=== PATIENT | female | born 1970 | race Caucasian/White ===

== ENCOUNTER → 2020-12-17 09:24 | Outpatient (BNVA) | payer BC, SELFPAY | PROVIDERS: Visit Provider Family Medicine | DX: I10 Essential (primary) hypertension (principal); Z13.1 Encounter for screening for diabetes mellitus; Z13.220 Encounter for screening for lipoid disorders; Z13.6 Encounter for screening for cardiovascular disorders; M77.8 Other enthesopathies, not elsewhere classified; Z12.39 Encounter for other screening for malignant neoplasm of breast | CPT/HCPCS: 80053; 80061 ==

== ENCOUNTER 2024-04-29 05:48 | Observation (INO) | payer BC, SELFPAY ==
[2024-04-29] VITALS (16 sets, daily range): BP systolic 110–134; BP diastolic 66–95; PULSE 75–132; RESP 10–23; TEMP 36.6–36.9; O2SAT 92–98; BMI 27.4; BMI 27.8
--- NOTE | 2024-04-29 06:09 | ECG_ITS ---
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
--- NOTE | 2024-04-29 06:16 | XRR_ITS ---
PROCEDURE INFORMATION: Exam: XR Chest Exam date and time: 04/29/2024 6:17 AM Age: 53 years old Clinical indication: C/O palpitations. History of afib. ; Additional info: Dyspnea TECHNIQUE: Imaging protocol: Radiologic exam of the chest. Views: 1 view. COMPARISON: No relevant prior studies available. FINDINGS: Lungs: Unremarkable. No consolidation. Pleural spaces: Unremarkable. No pleural effusion. No pneumothorax. Heart/Mediastinum: Unremarkable. No cardiomegaly. Bones/joints: Unremarkable. XR/XR chest 1V portable [id number] IMPRESSION: No acute findings.
--- NOTE | 2024-04-29 06:17 | ED_ITS ---
HPI - Arrhythmia/Palpitations 2 General: Chief Complaint: Arrhythmia/Palpitations Stated Complaint: High HR Time Seen by Provider: 04/29/24 06:08 History of Present Illness: 63-year-old female presents emergency ro om with a known history of atrial fibrillation. She woke up this morning with rapid heart rate. She usually takes metoprolol 50 mg twice a day. No recent changes in her medication she did take her morning dose of atrial fibrillation after she woke up. She denies any shortness of breath or orthopnea no lower extremity edema. No chest pain. Patient is not on any anticoagulation. Related Data Home Medications ?Medication ?Instructions ?Recorded ?Confirmed cetirizine 10 mg capsule (Zyrtec) 10 mg PO DAILY 12/1704/29/24 cholecalciferol (vitamin D3) 25 25 mcg PO QPM 04/29/24 04/29/24 mcg (1,000 unit) tablet (Vitamin D3) lactobacillus combination no.4 3 3,000 mmu cells PO QP M 04/29/24 04/29/24 billion cell capsule (Probiotic) lysine 500 mg tablet (L-Lysine) 500 mg PO QPM 04/29/24 04/29/24 magnesium glycinate 100 mg (as 100 mg PO QPM 04/29/24 04/29/24 glycinate) tablet Previous Rx's ?Medication ?Instructions ?Recorded metoprolol tartrate 50 mg tablet 50 mg PO BID 30 days #60 tabs 12/17/20 Allergies Allergy/AdvReac Type Severity Reaction Status Date / Time codeine Allergy unk Verified 04/13/21 09:10 Narcotics Allergy ill Uncoded 04/13/21 09:10 Review of Systems 2 Const: Denies: fever(s) or chills Card: Reports: palpitations and irregular heart rhythm; Denies: chest pain Resp: Denies: dyspnea GI: Denies: abdominal pain : Denies: dysuria, urinary frequency or urinary urgency Musc: Denies: neck pain or back pain Skin/Breast: Denies: rash PFSH ED 2 PFSH: Medical History Family history of alpha 1 antitrypsin deficiency Hypertension Afib Social History Smoking and tobacco/nicotine status: current every day tobacco/nicotine user cigarettes Packs smoked per day: 0.5 Years cigarettes smoked: 30 Alcohol intake: never Substance/Drug Use: never Female Reproductive History: Date of last menstrual period: 04/13/24 S pontaneous abortions: No Physical Exam 2 Const: COMMON NORMALS: no acute distress GENERAL APPEARANCE: cooperative and comfortable ORIENTATION/CONSCIOUSNESS: Yes awake, Yes oriented to person, Yes oriented to place and Yes oriented to time HENMT: COMMON NORMALS: normocephalic, atraumatic and hearing grossly normal bilaterally HEAD & SCALP: normocephalic and atraumatic Resp: COMMON NORMALS: normal respiratory effort, No retractions, No use of accessory muscles and clear to auscultation bilaterally AUSCULTATION: clear to auscultation bilaterally Cardio: COMMON NORMALS: No murmurs present (Cardio) RATE: tachycardic R HYTHM: abnormal rhythm irregularly irregular GI: COMMON NORMALS: Soft to palpation and No hepatosplenomegaly present A USCULTATION: Yes normoactive bowel sounds PALPATION: Yes Soft to palpation, No Tenderness to palpation present (GI), No Guarding due to palpation present (GI) and Yes No hepatosplenomegaly present Extremity: COMMON NORMALS: normal to inspection, capillary refill normal, no clubbing, cyanosis or edema, no calf tenderness and no pedal edema Neuro: SENSORIUM/ORIENTATION: Yes oriented to person, Yes oriented to place and Yes oriented to time Skin: COMMON NORMALS: no rashes or lesions noted GENERAL SKIN EXAM: no rashes or lesions noted Course 2 Vital Signs: Vital signs: Vital Signs Pulse Rate 91 04/29/24 09:13 Blood Pressure 134/81 04/29/24 09:13 Pulse Oximetry 97 04/29/24 09:13 Oxygen Delivery Me thod Room Air 04/29/24 06:46 MDM - Arrhythmia/Palpitations Medical Decision Making History of A-fib presents in A-fib with RVR rate improved with Cardizem but titrated up to 7.5 to maintain rate. Will place on observation for medication adjustment to her reevaluate therapy for A-fib and maintain rate control Medical Records I reviewed the patient's medical records. Lab Data I reviewed the patient's lab results. 04/29/24 06:40 04/29/24 06:40 Radiology Impressions Chest X-Ray 04/29/24 06:16 IMPRESSION: No acute findings. Laboratory Results WBC 6.48 10^3/uL (3.29-11.43) 04/29/24 06:40 RBC 5.15 10^6/uL (3.85-5.65) 04/29/24 06:40 Hgb 16.30 g/dL (11.27-16.99) 04/29/24 06:40 Hct 47.1 % (36-47) H 04/29/24 06:40 MCV 91.5 fl (85-98) 04/29/24 06:40 MCH 31.7 pg (27-33) 04/29/24 06:40 MCHC 34.6 g/dL (30-55) 04/29/24 06:40 RDW 11.3 % (12.1-15.1) L 04/29/24 06:40 Plt Count 206 10^3/cmm (157-399) 04/29/24 06:40 MPV 9.8 fL (7.4-10.4) 04/29/24 06:40 Neut % (Auto) 72.6 % 04/29/24 06:40 Lymph % (Auto) 19.1 % 04/29/24 06:40 [place] % (Auto) 6.6 % 04/29/24 06:40 Eos % (Auto) 1.1 % 04/29/24 06:40 Baso % (Auto) 0.3 % 04/29/24 06:40 Neut # (Auto) 4.70 10^3/uL (1.8-7.7) 04/29/24 06:40 Lymph # (Auto) 1.2 10^3/uL (0.8-4.8) 04/29/24 06:40 [place] # (Auto) 0.4 10^3/uL (0.2-0.9) 04/29/24 06:40 Eos # (Auto) 0.1 10^3/uL (0.0-0.8) 04/29/24 06:40 Baso # (Auto) 0.0 10^3/uL (0.0-0.1) 04/29/24 06:40 Nucleated RBC % (auto) 0 % 04/29/24 06:40 Nucleated RBCs # 0.0 /100WBC 04/29/24 06:40 Sodium 140 mmol/L (136-145) 04/29/24 06:40 Potassium 3.9 mmol/L (3.5-5.1) 04/29/24 06:40 Chloride 108 mmol/L (98-107) H 04/29/24 06:40 Carbon Dioxide 22 mmol/L (22-29) 04/29/24 06:40 Anion Gap 13.9 (5-19) 04/29/24 06:40 BUN 15 mg/dL (6-20) 04/29/24 06:40 Creatinine 0.7 mg/dL (0.5-0.9) 04/29/24 06:40 GFR Calculation 88.2 mL/min (90-130) L 04/29/24 06:40 Glucose 129 mg/dL (65-115) H 04/29/24 06:40 Calculated Osmolality 293 mOsm/kg (285-295) 04/29/24 06:40 Calcium 9.1 mg/dL (8.5-10.5) 04/29/24 06:40 Total Bilirubin 0.4 mg/dL (0.15-1.2) 04/29/24 06:40 AST 14 U/L (0-32) 04/29/24 06:40 ALT 16 U/L (0-33) 04/29/24 06:40 Alkaline Phosphatase 88 U/L (35-105) 04/29/24 06:40 Total Protein 6.8 g/dL (6.6-8.7) 04/29/24 06:40 Albumin 4.4 g/dL (3.5-5.2) 04/29/24 06:40 Globulin 2.4 g/dL (1.3-4.6) 04/29/24 06:40 TSH 1.44 uIU/mL (0.27-4.20) 04/29/24 06:40 Urine Color Yellow (Yellow) 04/29/24 06:30 Urine Appearance Clear (CLEAR) 04/29/24 06:30 Urine pH 6.0 (5-7) 04/29/24 06:30 Ur Specific [place] 1.000 (1.005-1.030) L 04/29/24 06:30 Urine Protein Negative (Negative) 04/29/24 06:30 Urine Glucose (UA) Negative (Normal) 04/29/24 06:30 Urine Ketones Negative (Negative) 04/29/24 06:30 Urine Blood Negative (Negative) 04/29/24 06:30 Urine Nitrate Negative (Negative) 04/29/24 06:30 Urine Bilirubin Negative (Negative) 04/29/24 06:30 Urine Urobilinogen 0.2 mg/dL (Negative) 04/29/24 06:30 Ur Leukocyte Esterase Negative (Negative) 04/29/24 06:30 Amorphous Sediment Not Reportable 04/29/24 06:30 All radiology interpretation(s) finalized by discharge Discharge Plan Discharge Patient Disposition: Admitted As Inpatient Admit Provider: Deng Deutsch Clinical Impression: Paroxysmal atrial fibrillation with RVR, Hypertension Condition: Stable Coding Level of Care Code ED 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
[2024-04-29 06:48] LABS: Add Urine Microscopic? NO
[2024-04-29 06:50] LABS: Basophils % 0.3 %; Eosinophils # 0.1 10^3/uL (0.0-0.8); Eosinophils % 1.1 %; Hematocrit 47.1 % (36-47); Lymphocytes # 1.2 10^3/uL (0.8-4.8); Lymphocytes % 19.1 %; Mean Corpuscular HGB Conc 34.6 g/dL (30-55); Mean Corpuscular Hemoglobin 31.7 pg (27-33); Mean Corpuscular Volume 91.5 fl (85-98); Mean Platelet Volume 9.8 fL (7.4-10.4); Monocytes # 0.4 10^3/uL (0.2-0.9); Monocytes % 6.6 %; Neutrophils % 72.6 %; Nucleated Red Blood Cells % 0 %; Platelet Count 206 10^3/cmm (157-399); Red Blood Count 5.15 10^6/uL (3.85-5.65); Red Cell Distribution Width 11.3 % (12.1-15.1); White Blood Count 6.48 10^3/uL (3.29-11.43)
[2024-04-29 06:52] LABS: Bilirubin Urine Negative (Negative); Blood Urine Negative (Negative); Glucose Urine UA Negative (Normal); Ketones Urine Negative (Negative); Leukocyte Esterase Urine Negative (Negative); Nitrate Urine Negative (Negative); Protein Urine Negative (Negative); Urine Appearance Clear (CLEAR); Urine Color Yellow (Yellow); Urobilinogen Urine 0.2 mg/dL (Negative)
[2024-04-29] MEDS: dilTIAZem 5 mg/mL SDV 5 mL 20 MG IVP (06:57)
[2024-04-29 07:03] LABS: Charge for UA Resulting for Rev
[2024-04-29] MEDS: dilTIAZem 100 MG in sodium chloride 0.9% (add-van) 100 ML IV (07:03)
[2024-04-29 07:23] LABS: Alanine Aminotransferase 16 U/L (0-33); Albumin Level 4.4 g/dL (3.5-5.2); Alkaline Phosphatase 88 U/L (35-105); Anion Gap 13.9 (5-19); Aspartate Amino Transferase 14 U/L (0-32); Blood Urea Nitrogen 15 mg/dL (6-20); Calcium 9.1 mg/dL (8.5-10.5); Carbon Dioxide 22 mmol/L (22-29); Chloride 108 mmol/L (98-107); Creatinine Clr Calc Pharmacy 96.2694; Globulin 2.4 g/dL (1.3-4.6); Glomerular Filtration Rate 88.2 mL/min (90-130); Glucose 129 mg/dL (65-115); Osmolality Calculated 293 mOsm/kg (285-295); Potassium 3.9 mmol/L (3.5-5.1); Sodium 140 mmol/L (136-145); Thyroid Stimulating Hormone 1.44 uIU/mL (0.27-4.20); Total Bilirubin 0.4 mg/dL (0.15-1.2); Total Protein 6.8 g/dL (6.6-8.7)
--- NOTE | 2024-04-29 09:38 | P.HP_ITS ---
Providers/Chief Complaint 2 Admitting Physician: Deng Deutsch Chief Complaint: High HR History of Present Illness Isabel Simmons is a 53 year old female Review of Systems 2 Const: Denies: fever(s), chills, body aches or malaise ENMT: Denies: throat pain Card: Reports: other (chest burning with tachycardia); Denies: edema, pre-syncope or dyspnea on exertion Resp: Denies: dyspnea, productive cough, change in phlegm color or hemoptysis GI: Denies: abdominal pain, nausea, vomiting, diarrhea, constipation, hematochezia or melena : Denies: flank pain, urinary frequency or hematuria Musc: Denies: back pain, joint swelling or joint redness Skin/Breast: Denies: rash or new lesions Neuro: Denies: headache(s) or confusion Medications/Allergies Home Medications ?Medication ?Instructions ?Recorded ?Confirmed ?Last Taken ?Type cetirizine 10 mg capsule (Zyrtec) 10 mg PO DAILY 12/1704/29/24 04/28/24 History metoprolol tartrate 50 mg tablet 50 mg PO BID 30 days #60 tabs 12/17/20 04/29/24 04/29/24 Rx cholecalciferol (vitamin D3) 25 25 mcg PO QPM 04/29/24 04/29/24 04/28/24 History mcg (1,000 unit) tablet (Vitamin D3) lactobacillus combination no.4 3 3,000 mmu cells PO QP M 04/29/24 04/29/24 04/28/24 History billion cell capsule (Probiotic) lysine 500 mg tablet (L-Lysine) 500 mg PO QPM 04/29/24 04/29/24 04/28/24 History magnesium glycinate 100 mg (as 100 mg PO QPM 04/29/24 04/29/24 04/28/24 History glycinate) tablet Allergies Allergy/AdvReac Type Severity Reaction Status Date / Time codeine Allergy unk Verified 04/13/21 09:10 Narcotics Allergy ill Uncoded 04/13/21 09:10 PFSH Acute 2 PFSH: Medical History Family history of alpha 1 antitrypsin deficiency Hypertension Afib Social History Smoking and tobacco/nicotine status: current every day tobacco/nicotine user cigarettes Packs smoked per day: 0.5 Years cigarettes smoked: 30 Alcohol intake: never Substance/Drug Use: never Female Reproductive History: Date of last menstrual period: 04/13/24 S pontaneous abortions: No Vitals/I&O/Wt Last Vital Signs Pulse 91 04/29/24 09:13 BP 134/81 04/29/24 09:13 Pulse Ox 97 04/29/24 09:13 O2 Del Method Room Air 04/29/24 06:46 04/28/24 04/29/24 04/29/24 22:59 06:59 14:59 Intake Total 2.833 / 2.833 Balance 2.833 / 2.833 Weight last 48 hrs Weight 78.381 kg Weight 74.843 kg Physical Exam 2 Narrative: at bedside Const: COMMON NORMALS: patient oriented x3 and alert GENERAL APPEARANCE: c ooperative ORIENTATION/CONSCIOUSNESS: Yes awake Neck/C-Spine: COMMON NORMALS: no JVD Resp: COMMON NORMALS: normal respiratory effort and clear to auscultation bilaterally AUSCULTATION: clear to auscultation bilaterally Cardio: COMMON NORMALS: no JVD, regular rhythm, S1 normal heart sound present, S2 normal heart sound present and No murmurs present (Cardio) RHYTHM: a bnormal rhythm irregularly irregular HEART SOUNDS: S1 normal heart sound present and S2 normal heart sound present GI: COMMON NORMALS: Normal to inspection, nondistended, normoactive bowel sounds present, Soft to palpation and non-tender PALPATION: Yes Soft to palpation Extremity: COMMON NORMALS: no joint enlargement and no pedal edema Neuro: COMMON NORMALS: patient oriented x3 and moves all extremities S ENSORIUM/ORIENTATION: Yes alert Data 04/29/24 06:40 04/29/24 06:40 A&P Assessment and plan (1) Paroxysmal atrial fibrillation with RVR: HR up to 130s, AFib w RVR, during peak tachycardia reports was having burning sensation. Says she has not missed any of her metoprolol. Started on cardizem drip in ER. So far responding to treatment with improving tachycardia, maintaining blood pressure, but monitor for risk of hypotension with medication combination with metoprolol. Monitor blood pressures, monitor on telemetry. Continue metoprolol. Check magnesium, added TSH. Reviewed vitals, CBC, CMP, UA, ER provider note, discussed with ER provider. Reviewed EKG, noted some TWI in V2. Symptomatic with chest burning with tachycardia will obtain troponin EKG series. She denies any fever chills, recently illness, has not missed medications. With heart rate being a bit better controlled we will assess TTE for any valvular heart disease, other structural abnormality. Additionally discussed stroke risk, discussed recommendation of anticoagulation with recommendation for stroke risk prophylaxis versus risk of bleeding. For now she prefers to start aspirin. Follow-up with primary provider. Plan HTN: monitor blood pressures, continue metoprolol Smoking: she had quit smoking several years ago PDMP PDMP Reviewed: Not Reviewed Attestations 2 Medical Necessity Statement*: Place in observation for additional assessment management of paroxysmal atrial fibrillation with RVR. and High MDM includes amount and/or complexity of data reviewed/ordered [ previous or external records, resulted lab(s)/test(s), ordered lab(s)/test(s), independent test interpretation and other healthcare professional discussion] and described risk of complication, morbidity or mortality of management as documented Diagnoses Paroxysmal atrial fibrillation with RVR I48.0
--- NOTE | 2024-04-29 09:56 | USCV_ITS ---
Isabel Simmons Age: 53 Gender: F : 1970 Exam Date: 04/29/2024 10:27 Ordering Phys: Deng Deutsch MD Technologist: Exam Location: [facility] [place] Indication: chest pain abnormal heart rythm BP: 121 / 70 HR: 71 Rhythm: Sinus Technical Quality: Adequate MEASUREMENTS (Male / Female) Normal Values 2D ECHO LV Diastolic Diameter PLAX 3.7 cm 4.2 - 5.9 / 3.9 - 5.3 cm IVS Diastolic Thickness 1.1 cm 0.6 - 1.0 / 0.6 - 0.9 cm IVS Systolic Thickness 1.7 cm LVPW Diastolic Thickness 1.3 cm 0.6 - 1.0 / 0.6 - 0.9 cm LVPW Systolic Thickness 1.4 cm LVOT Diameter 1.9 cm LV Ejection Fraction 2D Teich 62.4 % LV Ejection Fraction MOD 4C 68.9 % LV Ejection Fraction MOD 2C 67.2 % LV Ejection Fraction 2C AL 67.8 % LA Diameter 3.0 cm RA Systolic Volume 4C AL 23.9 ml RA Systolic Volume 4C MOD 24.2 ml Aorta at Sinotubular Diameter 2.1 cm IVC Diameter 1.7 cm M-MODE LA Ao Ratio MM 1.4 AV Cusp Separation MM 2.1 cm DOPPLER AV Peak Velocity 95.0 cm/s LVOT Peak Velocity 98.0 cm/s AV Area Cont Eq vti 3.0 cm squared AV Area Cont Eq pk 2.8 cm squared MV Peak Velocity 104.0 cm/s MV Area PHT 4.3 cm squared Mitral E to A Ratio 3.5 TV Peak Velocity 178.0 cm/s TR Peak Velocity 194.0 cm/s TR Peak Gradient 15.1 mmHg TV Peak E Velocity 88.0 cm/s PV Peak Velocity 104.0 cm/s FINDINGS Left Ventricle Normal left ventricular size, systolic function and wall thickness, with no regional wall motion abnormalities. Left ventricular ejection fraction is estimated at 60 %. Normal diastolic function. Right Ventricle The right ventricle is normal in size and function. Right Atrium The right atrium is normal in size. Left Atrium The left atrium is normal in size. Mitral Valve Mildly thickened mitral valve. No mitral valve stenosis. Mild mitral valve regurgitation. Aortic Valve Structurally normal aortic valve without significant sclerosis or stenosis. There is no aortic regurgitation. Tricuspid Valve Structurally normal tricuspid valve without significant stenosis or regurgitation. Pulmonary artery systolic pressure is normal. Pulmonic Valve Structurally normal pulmonic valve without significant stenosis. There is no pulmonic regurgitation. Pericardium Normal pericardium without effusion. Aorta Normal ascending aorta dimension. IVC The inferior vena cava appears normal. CONCLUSIONS Normal left ventricular size, systolic function and wall thickness, with no regional wall motion abnormalities. Left ventricular ejection fraction is estimated at 60 %. Normal diastolic function. Mildly thickened mitral valve. No mitral valve stenosis. Mild mitral valve regurgitation. There is no pericardial effusion. Right atrial pressure is around 5 mm of mercury. Dede Albright MD (Electronically Signed) Final Date: 29 April 2024 21:20 S
[2024-04-29 10:13] LABS: Magnesium 2.1 mg/dL (1.7-2.3)
[2024-04-29] MEDS: aspirin 81 mg EC Tablet 162 MG PO (10:45)
[2024-04-29] MEDS: enoxaparin 40 mg/0.4 mL Syringe SUBCUT (10:45)
[2024-04-29 11:04] LABS: Troponin(5th) Baseline 18 ng/L (0-10)
[2024-04-29 12:54] LABS: Troponin 5 2HR 17.02 ng/L (0-10)
[2024-04-29 12:56] LABS: Troponin 5 2HR Delta -0.98 ABS# (0-10)
--- NOTE | 2024-04-29 14:14 | ECG_ITS ---
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
--- NOTE | 2024-04-29 15:56 | ECG_ITS ---
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
[2024-04-29] MEDS: ondansetron 2 mg/ML SDV 2 mL 4 MG IVP (16:32)
[2024-04-29] MEDS: dilTIAZem 100 MG in sodium chloride 0.9% (add-van) 100 ML 12.5 MG IV (17:35)
[2024-04-29] MEDS: magnesium oxide 400 mg tablet 200 MG PO (18:29)
[2024-04-29] MEDS: metoprolol tartrate 50 mg Tablet PO (18:29)
[2024-04-29] MEDS: acetaminophen 325 mg Tablet 650 MG PO (19:17)
--- NOTE | 2024-04-29 23:06 | ECG_ITS ---
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
--- NOTE | 2024-04-29 23:51 | PC.NURSE ---
Pt converted at 2300 on bedside monitor, EKG taken to confirm, EKG confirmed Sinus Bhanu
[2024-04-30] VITALS: BP 103/60; PULSE 53; RESP 18; O2SAT 96
[2024-04-30 03:30] LABS: Basophils % 0.5 %; Eosinophils # 0.1 10^3/uL (0.0-0.8); Hematocrit 48.3 % (36-47); Lymphocytes % 24.4 %; Mean Corpuscular HGB Conc 34.6 g/dL (30-55); Mean Corpuscular Hemoglobin 32.1 pg (27-33); Mean Corpuscular Volume 92.7 fl (85-98); Mean Platelet Volume 10.1 fL (7.4-10.4); Monocytes # 0.5 10^3/uL (0.2-0.9); Monocytes % 5.9 %; Neutrophils # 5.55 10^3/uL (1.8-7.7); Neutrophils % 67.8 %; Nucleated Red Blood Cells % 0 %; Platelet Count 229 10^3/cmm (157-399); Red Blood Count 5.21 10^6/uL (3.85-5.65); Red Cell Distribution Width 11.5 % (12.1-15.1); White Blood Count 8.18 10^3/uL (3.29-11.43)
[2024-04-30 03:46] LABS: Anion Gap 14.8 (5-19); Blood Urea Nitrogen 13 mg/dL (6-20); Calcium 9.4 mg/dL (8.5-10.5); Carbon Dioxide 23 mmol/L (22-29); Chloride 107 mmol/L (98-107); Glomerular Filtration Rate 88.2 mL/min (90-130); Glucose 131 mg/dL (65-115); Osmolality Calculated 292 mOsm/kg (285-295); Potassium 4.8 mmol/L (3.5-5.1); Sodium 140 mmol/L (136-145)
[2024-04-30 03:51] VITALS: BP 114/66; PULSE 56; RESP 17; TEMP 36.8; O2SAT 94
[2024-04-30 05:23] VITALS: PULSE 82
[2024-04-30 08:00] VITALS: BP 133/70; PULSE 52; RESP 18; TEMP 36.7; O2SAT 97
[2024-04-30] MEDS: aspirin 81 mg EC Tablet 162 MG PO (08:45)
[2024-04-30] MEDS: acetaminophen 325 mg Tablet 650 MG PO (08:45)
[2024-04-30] MEDS: metoprolol tartrate 50 mg Tablet 75 MG PO (08:46)
[2024-04-30] MEDS: enoxaparin 40 mg/0.4 mL Syringe SUBCUT (08:47)
--- NOTE | 2024-04-30 09:08 | PM.DCS ---
Discharge Providers Date of Admission: 04/29/24 08:45 Date of Discharge: April 30, 2024 Attending Provider at Admission: Deng Deutsch Attending Provider at Discharge: Deng Deutsch Diagnoses at Discharge Discharge Diagnosis (1) Paroxysmal atrial fibrillation with RVR: Status: Acute Reason for Visit Reason for Visit: High HR Brief History: Pleasant 53-year-old lady with history of atrial fibrillation, hypertension presented to ER due to elevated irregular heart rate, with finding of atrial fibrillation with RVR. She had not missed any doses of her metoprolol that she normally takes at 50 mg twice daily. She is not on anticoagulation. On assessment she was not found to have any signs of congestive heart failure decompensation. No chest pain or pressure. She denies any recent other acute illness. Hospital Course Hospital Course She was hospitalized and treated with Cardizem infusion, continued on her metoprolol, with gradual improvement in heart rates down into the 50s-60s. Metoprolol was increased up to 75 mg. She is weaned off Cardizem. Troponin elevation noted to be mild, flat, and she remained free of any chest discomfort. Echocardiogram was assessed, she is found to have normal ejection fraction, normal diastolic function, mildly thickened mitral valve, no mitral stenosis, mild MVR. No RWMA. TSH was checked and was normal. Electrolytes normal. She has not had any recent illness. Without obvious trigger, she has not missed any of her metoprolol doses. Please follow-up assessment for possible sleep apnea. She has not been on anticoagulation, with [id number] score of 2, discussed with her recommendation would be for anticoagulation for stroke risk reduction, she is concerned to start anticoagulation at this time would like to first discuss it with her primary provider. In the meantime she is agreeable to start on aspirin. Understands that aspirin provides only partial stroke risk reduction effect compared to full anticoagulation. Physical Exam Narrative: Accompanied by her . Const: COMMON NORMALS: patient oriented x3 and alert GENERAL APPEARANCE: cooperative ORIENTATION/CONSCIOUSNESS: Yes awake HENMT: COMMON NORMALS: oropharynx normal Neck/C-Spine: COMMON NORMALS: no JVD Resp: COMMON NORMALS: normal respiratory effort and clear to auscultation bilaterally AUSCULTATION: clear to auscultation bilaterally Cardio: COMMON NORMALS: no JVD, regular rhythm, S1 normal heart sound present, S2 normal heart sound present and No murmurs present (Cardio) RHYTHM: regular rhythm HEART SOUNDS: S1 normal heart sound present and S2 normal heart sound present GI: COMMON NORMALS: Normal to inspection, nondistended, normoactive bowel sounds present, Soft to palpation and non-tender PALPATION: Yes Soft to palpation Extremity: COMMON NORMALS: no joint enlargement and no pedal edema Neuro: COMMON NORMALS: patient oriented x3 and moves all extremities SENSORIUM/ORIENTATION: Yes alert Skin: COMMON NORMALS: no rashes or lesions noted GENERAL SKIN EXAM: no rashes or lesions noted Discharge Data Studies Completed and Pending Completed Studies During Hospitalization Category Date Time Status XR chest 1V portable [id number] Stat Exams 04/29/24 06:16 Completed CV. echo complete* [id number] Routine Ultrasound 04/29/24 09:56 Completed Pending at discharge Category Date Time Status Basic Metabolic Panel AM LABS Lab 05/01/24 04:00 Ordered Basic Metabolic Panel AM LABS Lab 05/02/24 04:00 Ordered Complete Blood Count w/Auto AM LABS Lab 05/01/24 04:00 Ordered Complete Blood Count w/Auto AM LABS Lab 05/02/24 04:00 Ordered Radiology Impressions Chest X-Ray 04/29/24 06:16 IMPRESSION: No acute findings. Laboratory Results WBC 8.18 10^3/uL (3.29-11.43) 04/30/24 02:57 RBC 5.21 10^6/uL (3.85-5.65) 04/30/24 02:57 Hgb 16.70 g/dL (11.27-16.99) 04/30/24 02:57 Hct 48.3 % (36-47) H 04/30/24 02:57 MCV 92.7 fl (85-98) 04/30/24 02:57 MCH 32.1 pg (27-33) 04/30/24 02:57 MCHC 34.6 g/dL (30-55) 04/30/24 02:57 RDW 11.5 % (12.1-15.1) L 04/30/24 02:57 Plt Count 229 10^3/cmm (157-399) 04/30/24 02:57 MPV 10.1 fL (7.4-10.4) 04/30/24 02:57 Neut % (Auto) 67.8 % 04/30/24 02:57 Lymph % (Auto) 24.4 % 04/30/24 02:57 Cooper % (Auto) 5.9 % 04/30/24 02:57 Eos % (Auto) 1.0 % 04/30/24 02:57 Baso % (Auto) 0.5 % 04/30/24 02:57 Neut # (Auto) 5.55 10^3/uL (1.8-7.7) 04/30/24 02:57 Lymph # (Auto) 2.0 10^3/uL (0.8-4.8) 04/30/24 02:57 Cooper # (Auto) 0.5 10^3/uL (0.2-0.9) 04/30/24 02:57 Eos # (Auto) 0.1 10^3/uL (0.0-0.8) 04/30/24 02:57 Baso # (Auto) 0.0 10^3/uL (0.0-0.1) 04/30/24 02:57 Nucleated RBC % (auto) 0 % 04/30/24 02:57 Nucleated RBCs # 0.0 /100WBC 04/30/24 02:57 Sodium 140 mmol/L (136-145) 04/30/24 02:57 Potassium 4.8 mmol/L (3.5-5.1) 04/30/24 02:57 Chloride 107 mmol/L (98-107) 04/30/24 02:57 Carbon Dioxide 23 mmol/L (22-29) 04/30/24 02:57 Anion Gap 14.8 (5-19) 04/30/24 02:57 BUN 13 mg/dL (6-20) 04/30/24 02:57 Creatinine 0.7 mg/dL (0.5-0.9) 04/30/24 02:57 GFR Calculation 88.2 mL/min (90-130) L 04/30/24 02:57 Glucose 131 mg/dL (65-115) H 04/30/24 02:57 Calculated Osmolality 292 mOsm/kg (285-295) 04/30/24 02:57 Calcium 9.4 mg/dL (8.5-10.5) 04/30/24 02:57 Magnesium 2.1 mg/dL (1.7-2.3) 04/29/24 06:40 Total Bilirubin 0.4 mg/dL (0.15-1.2) 04/29/24 06:40 AST 14 U/L (0-32) 04/29/24 06:40 ALT 16 U/L (0-33) 04/29/24 06:40 Alkaline Phosphatase 88 U/L (35-105) 04/29/24 06:40 Troponin T Baseline 18 ng/L (0-10) H 04/29/24 10:21 Troponin T 120 Minute 17.02 ng/L (0-10) H 04/29/24 12:23 Delta Troponin T -0.98 ABS# (0-10) L 04/29/24 12:23 Troponin T Hi Sens 6Hr 15.60 ng/L (0-10) H 04/29/24 16:21 Troponin T Hi Sens 6Hr Delta -2.40 ng/L (0-12) L 04/29/24 16:21 Total Protein 6.8 g/dL (6.6-8.7) 04/29/24 06:40 Albumin 4.4 g/dL (3.5-5.2) 04/29/24 06:40 Globulin 2.4 g/dL (1.3-4.6) 04/29/24 06:40 TSH 1.44 uIU/mL (0.27-4.20) 04/29/24 06:40 Urine Color Yellow (Yellow) 04/29/24 06:30 Urine Appearance Clear (CLEAR) 04/29/24 06:30 Urine pH 6.0 (5-7) 04/29/24 06:30 Ur Specific Hugo 1.000 (1.005-1.030) L 04/29/24 06:30 Urine Protein Negative (Negative) 04/29/24 06:30 Urine Glucose (UA) Negative (Normal) 04/29/24 06:30 Urine Ketones Negative (Negative) 04/29/24 06:30 Urine Blood Negative (Negative) 04/29/24 06:30 Urine Nitrate Negative (Negative) 04/29/24 06:30 Urine Bilirubin Negative (Negative) 04/29/24 06:30 Urine Urobilinogen 0.2 mg/dL (Negative) 04/29/24 06:30 Ur Leukocyte Esterase Negative (Negative) 04/29/24 06:30 Amorphous Sediment Not Reportable 04/29/24 06:30 Vitals Last Vital Signs Temp 98.1 F 04/30/24 08:00 Pulse 52 L 04/30/24 08:00 Resp 18 04/30/24 08:00 BP 133/70 04/30/24 08:00 Pulse Ox 97 04/30/24 08:00 O2 Del Method Room Air 04/30/24 08:00 Discharge Plan Discharge Patient Disposition: Home Condition: Stable Prescriptions: New aspirin 325 mg tablet 162.5 mg PO DAILY Qty: 90 0RF Continued Zyrtec 10 mg capsule 10 mg PO DAILY lysine [L-Lysine] 500 mg Tablet 500 mg PO QPM cholecalciferol (vitamin D3) [Vitamin D3] 25 mcg (1,000 unit) Tablet 25 mcg PO QPM magnesium glycinate 100 mg Tablet 100 mg PO QPM Probiotic 3 billion cell Capsule 3,000 mmu cells PO QPM Rx Instructions: administer with a meal Changed metoprolol tartrate 50 mg tablet 75 mg PO BID 30 Days Qty: 60 5RF Discharge Orders: Discharge Order (Routine); Ordered 04/30/24 Ordered By: Deng Deutsch Other Ambulatory Orders: Sleep Study/Titration (Routine) Timeframe: 1 Week Facility: [facility] - Location: [facility] Ordered By: Deng Deutsch Referrals: Francine Daniel [employer] [Nurse Practitioner] - 2 weeks (Recurrent AFib w RVR) David Pruitt [Referring] - 05/06/24 2:00 pm Discharge Diet: Cardiac Patient Instructions: Metoprolol (By mouth), A-fib (Atrial Fibrillation) (GEN) Activity Restrictions/Additional Instructions: Please follow-up with your primary provider as well as with cardiology for reassessment of recurrent episodes of atrial fibrillation, atrial fibrillation with rapid ventricular response despite not missing any metoprolol. Follow-up regarding sleep study to assess for any sleep apnea. Sleep apnea can be a trigger for atrial fibrillation. Follow-up with your primary doctor regarding results. Discuss further with your primary provider and cardiology regarding atrial fibrillation including stroke risk reduction. Revisit again regarding anticoagulation consideration. Continue aspirin in the meantime. Monitor for any bleeding as aspirin does increase the risk bleeding somewhat. Aspirin may also lead to irritation of her stomach, gastritis and/or peptic ulcer disease. Please speak further with your primary care provider. Monitor heart rates, blood pressures at home 3 times daily. Avoid heart rates dipping down below 50. In case heart rate is trending to low 50s or below, hold metoprolol dose. Decrease subsequent doses back to 50 mg. Seek medical attention in case of any worsening or new concerning symptoms. Discharge Attestations Time Spent in Discharge Care*: greater than 30 min Quality Metrics Clinical Quality Measures [ No reported AMI, CVA or VTE this stay] Coding Level of Care Code 28013 Total time (in minutes) for Discharge: 40 Diagnoses Paroxysmal atrial fibrillation with RVR I48.0
--- NOTE | 2024-04-30 09:46 | PC.CHAP ---
Pastoral Care Encounter/Spiritual Assessment Type of Contact [] Declined diagnostic tech visit [] Patient/Family/Request visit [] Outpatient visit [] Follow-up visit [] Physician referral [] Code/Alert [x] Routine visit [] Staff referral [] Actively dying [] Patient sleeping [] Family support [] [] Out of room [] Palliative care [] [] Receiving care in room [] Pre-surgical visit [] Trauma [] Long length of stay [] ICU visit [] Other: Relational/Emotional Strength [x] Patient feels connected with others/family/visitors/staff [] Distress [] Loneliness/isolation [] Abandonment Spirituality of Patient [x] Person of Criss [] Attends Anabaptism of their Criss [x] Believes in Prayer [] Reads Bible or Muslim materials [] There are Spiritual issues to be addressed [employer]ile [employer]ter Interventions [x] Prayer [x] Active listening [] Non-anxious presence [x] Spiritual/emotional support [] Crisis/trauma care [] Spiritual counseling [] Bereavement support [] Provided bereavement packet [] Provided Bible/devotional materials [] Provided toy/stuffed animal, coloring book to patient or family member [] Provided Communion [] Anointing/[place] [] Salvation [x] Completed spiritual assessment [] Other: Impact on Illness or Injury [] Angry [] Fearful [] Anxious [] Often cries [] Exhaustion [] Unable to work [] Unable to attend jain [] Unable to walk/stand [] Unable to read [] Unable to drive [] Unable to eat/drink [] Unable to sleep [] Unable to be with family [] Patient intubated [] Other: Summary Time spent with patient 5 min
[2024-04-30 12:00] VITALS: BP 134/81; PULSE 51; RESP 18; TEMP 36.7; O2SAT 96
[2024-04-30 12:39] VITALS: BP 133/70; PULSE 60; RESP 16; O2SAT 95
--- NOTE | 2024-04-30 13:24 | PC.NURSE ---
discharge instructions given and explained.pt verb understanding of instructions.discharged via w/c to exit at this time.spouse to drive pt home
== END 2024-04-30 13:26 | disposition home or self-care (01) ==
LOC: ER 06:19 → CSU 08:45
PROVIDERS: Admitting Provider Internal Medicine; Emergency Provider Family Medicine; Visit Provider Internal Medicine
DX: I48.0 Paroxysmal atrial fibrillation (principal); I10 Essential (primary) hypertension; F17.210 Nicotine dependence, cigarettes, uncomplicated; Z79.899 Other long term (current) drug therapy; Z88.5 Allergy status to narcotic agent
CPT/HCPCS: 36415; 71045; 80048; 80053; 81003; 83735; 84443; 84484; 85025; 93005; 93306; 96372; G0378; J1650; J2405; J3490